=== PATIENT | male | born 1960 | race Caucasian/White ===

== ENCOUNTER → 2020-09-30 03:39 | Outpatient (CLI) | payer SELFPAY ==
[2020-09-30 19:50] LABS: SARS-CoV-2 RNA PCR Negative
== END ==
PROVIDERS: PCP Registered Nurse; Visit Provider Internal Medicine Gastroenterology
DX: Z01.812 Encounter for preprocedural laboratory examination (principal); Z20.822 Contact with and (suspected) exposure to COVID-19
CPT/HCPCS: C9803; U0003; U0005

== ENCOUNTER 2020-10-03 00:49 | Day surgery (SDC) | payer MEDICARE, SELFPAY ==
[2020-09-23 13:52] VITALS: BMI 32.5
[2020-10-03 11:07] VITALS: BP 139/77; PULSE 92; RESP 20; TEMP 36.8; O2SAT 96; BMI 32.8
--- NOTE | 2020-10-03 11:08 | WPDANESEPPF ---
Anes - Initial Pre Proc Eval Procedure: Operation Date: 10/03/20 12:30 Proposed Procedures p Esophagogastroduodenoscopy - Dick Nunes DO Date/Time: 10/03/20 11:08 Surgeon: Dick Nunes DO Pre Op Diagnosis: GERD,gastroparesis,ugalde's esophagus Patient Data Age: 60 Gender: M Height: 1.83 m Weight: 109 kg Allergies Allergy/AdvReac Type Severity Reaction Status Date / Time No Known Allergies Allergy Verified 10/03/20 11:06 Home Medications Medication Instructions Recorded Confirmed Type Adult Probiotic 1 cap PO DAILY 09/23/20 10/03/20 History aspirin [Adult Low Dose Aspirin] 81 mg PO DAILY 09/23/20 10/03/20 History esomeprazole magnesium 40 mg PO DAILY 09/23/20 10/03/20 History hydrocodone-acetaminophen 1 tablet PO Q8H PRN 09/23/20 09/23/20 History metoclopramide HCl 5 mg PO QACBREAK 09/23/20 10/03/20 History metoclopramide HCl 10 mg PO QACDINNER 09/23/20 10/03/20 History mv,Ca,xog-sgqw-BC-lycopene 1 tablet PO DAILY 09/23/20 10/03/20 History [Centrum Men] Patient hx anesthesia problems: none Family hx anesthesia problems: none [facility] Past Medical History Medical History (Updated 10/03/20 @ 09:23 by Barrett Avitia DO) Ugalde esophagus Chronic, continuous use of opioids GERD (gastroesophageal reflux disease) Social History Social History Smoking packs per day: 2 Smoking cigarettes per day: 40.0 Years smoked: 20 Smoking pack-years: 40.00 Smoking status: Current every day smoker Tobacco type: cigarettes Alcohol intake: never Substance use: never Substance use type: does not use Spiritual care concerns: No Anes - Eval Final PreProcedure Day of Procedure 10/03/20 11:08 Patient weight: obese Heart: regular rate and rhythm Lungs: clear to auscultation and normal air movement Airway: Mallampati scale class II Neurological: alert and oriented Last oral intake: >/= 8 hours ASA classification: III Emergent: no Anesthetic plan: proceed Anesthesia type and monitoring: general GIVS and standard monitoring Informed Consent: The patient's anesthetic plan and its attendant risks and benefits were discussed with the patient/family/POA. Questions were solicited and answers provided to the satisfaction of the patient/family/POA.
[2020-10-03] MEDS: LACTATED RINGERS 1,000 ML 150 ML IV CONT (11:19)
--- NOTE | 2020-10-03 11:58 | P.CONGI_ITS ---
GI Consult Note Consult date/time: 10/03/20 11:58 HPI: Reason for visit EGD. This very pleasant gentleman seen in consultation request of primary physician. Impression: GERD with history of gastroparesis and Colmenares's esophagus. Recommendation: EGD. History: This very pleasant gentleman has a history reflux disease. He has had document Colmenares's esophagus and gastroparesis. Patient is here for screening and surveillance of Colmenares's esophagus. Physical examination: General: very pleasant patient in no acute distress. HEENT: Head was normocephalic sclerae is clear mouth without masses neck was supple. Heart: Rate rhythm regular without S3 or S4. Lungs: CTA. Abdomen: Soft with no guarding or rigidity. Bowel sounds were active. Neurologic: Cranial nerves 2 through 12 intact. No focal defects. No clonus. Musculoskeletal system: Revealed no joint tenderness or swelling no muscle atrophy. Extremities: Reveal no significant edema. Skin: Warm and dry with normal turgor. Mental status: intact. Patient is alert and oriented. Review of Systems Review of Systems: All systems reviewed & are unremarkable except as noted in HPI and below [facility] Past Medical History Medical History (Updated 10/03/20 @ 11:42 by Dick Nunes DO) Colmenares esophagus Chronic, continuous use of opioids Gastroparesis GERD (gastroesophageal reflux disease) Social History Social History Smoking packs per day: 2 Smoking cigarettes per day: 40.0 Years smoked: 20 Smoking pack-years: 40.00 Smoking status: Current every day smoker Tobacco type: cigarettes Alcohol intake: never Substance use: never Substance use type: does not use Spiritual care concerns: No Meds Home Medications and Allergies Home Medications Medication Instructions Recorded Confirmed Type Adult Probiotic 1 cap PO DAILY 09/23/20 10/03/20 History aspirin [Adult Low Dose Aspirin] 81 mg PO DAILY 09/23/20 10/03/20 History esomeprazole magnesium 40 mg PO DAILY 09/23/20 10/03/20 History hydrocodone-acetaminophen 1 tablet PO Q8H PRN 09/23/20 09/23/20 History metoclopramide HCl 5 mg PO QACBREAK 09/23/20 10/03/20 History metoclopramide HCl 10 mg PO QACDINNER 09/23/20 10/03/20 History mv,Ca,qxl-yuky-UC-lycopene 1 tablet PO DAILY 09/23/20 10/03/20 History [Centrum Men] Allergies Allergy/AdvReac Type Severity Reaction Status Date / Time No Known Allergies Allergy Verified 10/03/20 11:06 Vital Signs Vital Signs - 24 hr 10/03/20 11:07 Temperature 36.8 C Pulse Rate 92 Respiratory Rate 20 Blood Pressure 139/77 Pulse Oximetry 96
[2020-10-03 12:21] VITALS: BP 118/70; PULSE 78; RESP 17; O2SAT 93
[2020-10-03 12:30] LABS: Prostate Specific Antigen 0.3 ng/mL (< OR = 4.0)
[2020-10-03 12:31] VITALS: BP 130/77; PULSE 79; RESP 17; O2SAT 98
[2020-10-03 12:41] VITALS: BP 126/77; PULSE 73; RESP 16; O2SAT 95
== END 2020-10-03 13:05 | disposition home or self-care (01) ==
PROVIDERS: PCP Registered Nurse; Visit Provider Internal Medicine Gastroenterology
PROC: 0DJ08ZZ Inspection of Upper Intestinal Tract, Via Natural or Artificial Opening Endoscopic (ICD-10-PCS; CPT 43235; principal; 2020-10-03 12:30)
DX: K22.70 Barrett's esophagus without dysplasia (principal); K25.9 Gastric ulcer, unspecified as acute or chronic, without hemorrhage or perforation; K31.84 Gastroparesis; K25.3 Acute gastric ulcer without hemorrhage or perforation; K29.60 Other gastritis without bleeding; K20.90 Esophagitis, unspecified without bleeding; Z12.5 Encounter for screening for malignant neoplasm of prostate; Z79.82 Long term (current) use of aspirin; E66.9 Obesity, unspecified; Z68.32 Body mass index [BMI] 32.0-32.9, adult; F17.210 Nicotine dependence, cigarettes, uncomplicated
CPT/HCPCS: 43239; 36415; 84153; 87081; 88305; G0103; J2001; J2704; J7120

== ENCOUNTER 2023-09-20 00:30 | Emergency (ER) | payer MEDICARE, SELFPAY ==
[2023-09-20 00:35] VITALS: BP 138/78; PULSE 96; RESP 18; TEMP 36.9; O2SAT 99
--- NOTE | 2023-09-20 00:53 | ED.GENADULT ---
HPI - General Adult General Chief complaint: Ear Stated complaint: foreign body ear Time Seen by Provider: 09/20/23 00:37 History of Present Illness HPI narrative: patient 63-year-old gentleman presents emergency department chief complaint of possible foreign body in the right ear. The patient reports he was using a Q-tip in his ear canal and the cotton swab portion of it came off the patient states that he has no pain in the ear denies foreign body sensation but felt as though the Q-tip was potentially left in his canal. The patient denies any other injuries denies changes in his hearing Related Data Home Medications Medication Instructions Recorded Confirmed Adult Probiotic 1 cap PO DAILY 09/23/20 10/03/20 aspirin 81 mg tablet 81 mg PO DAILY 09/23/20 10/03/20 esomeprazole magnesium 40 mg 40 mg PO DAILY 09/23/20 10/03/20 capsule,delayed release hydrocodone 5 mg-acetaminophen 325 1 tablet PO Q8H PRN Pain 09/23/20 09/23/20 mg tablet metoclopramide HCl 5 mg tablet 5 mg PO QACBREAK 09/23/20 10/03/20 metoclopramide HCl 5 mg tablet 10 mg PO QACDINNER 09/23/20 10/03/20 multivit,Ca,min-iron 8 mg-folic 1 tablet PO DAILY 09/23/20 10/03/20 acid 200 mcg-lycopene 600 mcg tablet (Centrum Men) Allergies Allergy/AdvReac Type Severity Reaction Status Date / Time No Known Allergies Allergy Verified 10/03/20 11:06 Review of Systems Review of Systems: A 10 system review of systems was completed on the patient and is negative except for what is stated in the HPI. Nursing and ancillary documentation was reviewed. [facility] Past Medical History Medical History Colmenares esophagus Chronic, continuous use of opioids Gastroparesis GERD (gastroesophageal reflux disease) Social History Social History Smoking packs per day: 2 Smoking cigarettes per day: 40.0 Years smoked: 20 Smoking pack-years: 40.00 Smoking status: Current every day smoker Tobacco type: cigarettes Alcohol intake: never Substance use: never Substance use type: does not use Living arrangements: with family Spiritual care concerns: No Exam Narrative: GENERAL: Well-appearing, well-nourished, and in no acute distress. HEAD: Normocephalic, atraumatic. EYES: PERRLA and EOMI. ENT: Nares clear, no rhinorrhea or epistaxis. Mucous membranes moist. external auditory canal is clear of foreign bodies NECK: Supple. CHEST: Clear to auscultation. No respiratory distress. HEART: Regular rate and rhythm. No murmur heard. Normal peripheral pulses. ABDOMEN: Soft, nontender, nondistended, normal active bowel sounds. EXTREMITIES: Normal range of motion. No edema. SKIN: Warm, dry, no rash. NEURO: No focal deficits. Alert and oriented x3. PSYCH: Normal mood and affect. Course Vital Signs Vital signs: Vital Signs Temperature 36.9 C 09/20/23 00:35 Pulse Rate 96 09/20/23 00:35 Respiratory Rate 18 09/20/23 00:35 Blood Pressure 138/78 09/20/23 00:35 Pulse Oximetry 99 09/20/23 00:35 Oxygen Delivery Room Air 09/20/23 00:35 Temperature 36.9 C 09/20/23 00:35 Pulse Rate 96 09/20/23 00:35 Respiratory Rate 18 09/20/23 00:35 Blood Pressure 138/78 09/20/23 00:35 Pulse Oximetry 99 09/20/23 00:35 Oxygen Delivery Room Air 09/20/23 00:35 Medical Decision Making MDM Narrative Medical decision making narrative: differential diagnosis includes foreign body, patient had no foreign body to be removed at this time patient discharged home to follow-up with his primary care provider Vital Signs Vital Signs: Vital Signs Temperature 36.9 C 09/20/23 00:35 Pulse Rate 96 09/20/23 00:35 Respiratory Rate 18 09/20/23 00:35 Blood Pressure 138/78 09/20/23 00:35 Pulse Oximetry 99 09/20/23 00:35 Oxygen Delivery Room Air 09/20/23 00:35 Temperature 36.9 C
== END 2023-09-20 01:13 | disposition home or self-care (01) ==
PROVIDERS: Emergency Provider Emergency Medicine; PCP Registered Nurse
DX: H93.8X1 Other specified disorders of right ear (principal); K21.9 Gastro-esophageal reflux disease without esophagitis; Z79.891 Long term (current) use of opiate analgesic; Z79.82 Long term (current) use of aspirin; F17.210 Nicotine dependence, cigarettes, uncomplicated
CPT/HCPCS: 99281